=== PATIENT | male | born 1995 | race Caucasian/White ===

== ENCOUNTER 2023-10-08 20:51 | Emergency (ER) | payer OTHER ==
[2023-10-08 21:21] VITALS: RESP 18
--- NOTE | 2023-10-08 21:23 | XR ---
EXAMINATION TYPE: XR wrist complete RT DATE OF EXAM: 10/08/2023 COMPARISON: NONE HISTORY: 27-year-old male with lateral wrist pain TECHNIQUE: 4 views FINDINGS: The radiocarpal and distal radioulnar joint as well as the midcarpal compartment appear int act. At the edge of the film, there is a small 2 mm ossific density along the dorsal aspect of the fi rst MCP joint on the navicular view. Probable tiny loose body. No other acute fracture, subluxation, dislocation seen. IMPRESSION: 1. At the edge of the film, there is a tiny 2 mm ossific density at the dorsal aspect of the first MC P joint, possible small loose body. Particularly seen on the navicular view. Correlate for any focal pain here to exclude a tiny avulsion fracture. 2. Otherwise, no acute osseous abnormality seen.
--- NOTE | 2023-10-08 21:55 | ED ---
General Adult HPI - General Chief complaint: Skin/Abscess/Foreign Body Stated complaint: Right Arm Pain Time Seen by Provider: 10/08/23 21:54 Source: patient, RN notes reviewed Mode of arrival: ambulatory Limitations: no limitations - History of Present Illness Initial comments: Patient is a 27-year-old male presented to ER with a chief complaint of right arm pain. Patient states he has had a rash on his arm for about 6 years and has been told in the past that is psoriatic arthritis. He states for the past couple of days he has been having increase in pain. He states the rash has appeared purple on his arm. Patient has an appointment with PCP on regarding this issue. Patient states he has been having pain with movement of his wrist. Denies any numbness or tingling. Denies any known injuries. Denies any new soaps, lotions, products. - Related Data Allergies Allergy/AdvReac Type Severity Reaction Status Date / Time No Known Allergies Allergy Verified 10/08/23 20:59 Review of Systems ROS Statement: Those systems with pertinent positive or pertinent negative responses have been documented in the HPI. ROS Other: All systems not noted in ROS Statement are negative. Past Medical History Past Medical History: Hypertension History of Any Multi-Drug Resistant Organisms: None Reported Past Surgical History: No Surgical Hx Reported Past Psychological History: No Psychological Hx Reported Smoking Status: Vaper Past Alcohol Use History: Occasional Past Drug Use History: None Reported General Exam Limitations: no limitations General appearance: alert, in no apparent distress Head exam: Present: atraumatic, normocephalic, normal inspection Eye exam: Present: normal appearance, PERRL, EOMI. Absent: scleral icterus, conjunctival injection, periorbital swelling Respiratory exam: Present: normal lung sounds bilaterally. Absent: respiratory distress, wheezes, rales, rhonchi, stridor Cardiovascular Exam: Present: regular rate, normal rhythm, normal heart sounds. Absent: systolic murmur, diastolic murmur, rubs, gallop, clicks Extremities exam: Present: normal inspection, full ROM, normal capillary refill. Absent: tenderness, pedal edema, joint swelling, calf tenderness Neurological exam: Present: alert, oriented X3, CN II-XII intact Psychiatric exam: Present: normal affect, normal mood Skin exam: Present: warm, dry, intact, normal color, other (Red blanchable area over the radial styloid proximally. 2+ radial pulse. Full active range of motion. Sensation intact.) Course Vital Signs 10/08/23 10/08/23 20:56 22:13 Temperature 97.9 F 98.0 F Pulse Rate 74 79 Respiratory 18 18 Rate Blood Pressure 137/88 127/83 O2 Sat by Pulse 98 97 Oximetry Medical Decision Making - Medical Decision Making Was pt. sent in by a medical professional or institution (, [facility], [facility], urgent care, hospital, or usp...) When possible be specific @ -No Did you speak to anyone other than the patient for history (EMS, parent, family, police, friend...)? What history was obtained from this source @ -No Did you review nursing and triage notes (agree or disagree)? Why? @ -I reviewed and agree with nursing and triage notes Were old charts reviewed (outside hosp., previous admission, EMS record, old EKG, old radiological studies, urgent care reports/EKG's, usp records)? Report findings @ -No old charts were reviewed Differential Diagnosis (chest pain, altered mental status, abdominal pain women, abdominal pain men, vaginal bleeding, weakness, fever, dyspnea, syncope, headache, dizziness, GI bleed, back pain, seizure, CVA, palpatations, mental health, musculoskeletal)? @ -Cellulitis, abscess, roseola, rubeola, [id number]-[id number]-[id number]-mouth, contact dermatitis this list is not meant to be all-inclusive. EKG interpreted by me (3pts min.). @ -None X-rays interpreted by me (1pt min.). @ -Right wrist x-ray interpreted by me shows no acute process. CT interpreted by me (1pt min.). @ -None done U/S interpreted by me (1pt. min.). @ -None done What testing was considered but not performed or refused? (CT, X-rays, U/S, labs)? Why? @ -None What meds were considered but not given or refused? Why? @ -None Did you discuss the management of the patient with other professionals (professionals i.e. [facility], [facility], lab, RT, psych nurse, oncology social worker, project management professor, teacher, sustainability officer, economic development manager)? Give summary @ -No Was smoking cessation discussed for >3mins.? @ -I discussed smoking cessation for greater than 3 minutes. The risk of smoking were discussed with the patient including but not limited to risks of cancer, stroke, coronary artery disease and COPD. Also discussed with patient were multiple methods of quitting smoking. Lastly we discussed the financial cost of smoking. Was critical care preformed (if so, how long)? @ -No Were there social determinants of health that impacted care today? How? (H omelessness, low income, unemployed, alcoholism, drug addiction, transportation, low edu. Level, literacy, decrease access to med. care, [facility], rehab)? @ -No Was there de-escalation of care discussed even if they declined (Discuss DNR or withdrawal of care, Hospice)? DNR status @ -No What co-morbidities impacted this encounter? (DM, HTN, Smoking, COPD, CAD, Cancer, CVA, ARF, Chemo, Hep., AIDS, mental health diagnosis, sleep apnea, morbid obesity)? @ -Smoker Was patient admitted / discharged? Hospital course, mention meds given and route, prescriptions, significant lab abnormalities, going to OR and other pertinent info. @ -Discharge. Patient is a 27-year-old male presented to the ER with chief complaint of a rash/right hand pain. History and physical exam were completed. Vitals stable. Patient in no signs of acute distress and nontoxic-appearing. Patient's right upper extremity neurovascularly intact. Full active range of motion. Patient did have a erythematous blanchable macular rash on right wrist. X-rays obtained due to increasing pain showed no acute process of right wrist. Results discussed with patient. All questions answered. Advised him to follow- up with PCP as scheduled on , 10-10-2023. I discussed smoking cessation for greater than 3 minutes. The risk of smoking were discussed with the patient including but not limited to risks of cancer, stroke, coronary artery disease and COPD. Also discussed with patient were multiple methods of quitting smoking. Lastly we discussed the financial cost of smoking. Return parameters were discussed. Patient will be discharged stable condition with follow-up to PCP. Patient expressed understanding and agreement with care plan. Undiagnosed new problem with uncertain prognosis? @ -No Drug Therapy requiring intensive monitoring for toxicity (Heparin, Nitro, Insulin, Cardizem)? @ -No Were any procedures done? @ -No Diagnosis/symptom? @ -Rash/right wrist pain Acute, or Chronic, or Acute on Chronic? @ -Acute Uncomplicated (without systemic symptoms) or Complicated (systemic symptoms)? @ -Uncomplicated Side effects of treatment? @ -No Exacerbation, Progression, or Severe Exacerbation? @ -No Poses a threat to life or bodily function? How? (Chest pain, [place], [place], pneumonia, PE, COPD, DKA, ARF, appy, cholecystitis, CVA, Diverticulitis, Homicidal, Suicidal, threat to staff... and all critical care pts) @ -No - Radiology Data Radiology results: report reviewed, image reviewed Disposition Clinical Impression: Rash, Wrist pain Disposition: HOME SELF-CARE Condition: Stable Additional Instructions: please follow-up with PCP as scheduled. Return to the ER for any new or worsening symptoms. Is patient prescribed a controlled substance at d/c from ED?: No Referrals: Nahid Parada DO [Primary Care Provider] - 1-2 days Time of Disposition: 21:55
[2023-10-08 22:18] VITALS: BP 127/83; PULSE 79; TEMP 98
== END 2023-10-08 22:15 | disposition home or self-care (01) ==
LOC: EC 20:51
DX: M25.531 Pain in right wrist (principal); R21 Rash and other nonspecific skin eruption; I10 Essential (primary) hypertension; F17.290 Nicotine dependence, other tobacco product, uncomplicated
CPT/HCPCS: 99283; 99406